=== PATIENT | female | born 1955 | race Caucasian/White ===

== ENCOUNTER 2021-09-28 16:54 | Observation (INO) | payer OTHER ==
[2021-09-28] MEDS ORDERED: Sodium Chloride 0.9% 10 ML Syringe FLUSH PRN (17:03)
[2021-09-28] MEDS ORDERED: Sodium Chloride 0.9% 1,000 ML IV ONE (17:30)
[2021-09-28] MEDS ORDERED: HYDROmorphone 0.5 MG/0.5 ML Syringe IVPUSH ONE (17:57)
[2021-09-28] MEDS ORDERED: Ondansetron 4 MG/2 ML SDV IVPUSH ONE (17:57)
[2021-09-28] MEDS ORDERED: Piperacillin/Tazobactam 4.5 GM in Sodium Chloride 0.9% 100 ML IV ONE (20:20)
[2021-09-28] MEDS: Lactated Ringers 1,000 ML IV SCH (22:37)
[2021-09-28] MEDS: HYDROmorphone 0.5 MG/0.5 ML Syringe IVPUSH PRN (22:38)
[2021-09-28] MEDS: Heparin Sodium 5,000 Units/ML Vial SUBCUT SCH (22:45)
[2021-09-29] MEDS: Piperacillin/Tazobactam 4.5 GM in Sodium Chloride 0.9% 100 ML IV SCH ×3 (04:36→20:51)
[2021-09-29] MEDS: Heparin Sodium 5,000 Units/ML Vial SUBCUT SCH ×3 (04:38→20:53)
[2021-09-29 07:04] LABS: ESTIMATED GFR > 60 mL/min (>60)
[2021-09-29] MEDS ORDERED: Sodium Chloride 0.9% 1,000 ML IV ONE ×2 (08:40→17:03)
[2021-09-29] MEDS: Metoprolol Succinate 50 MG Tab.ER PO SCH (09:55)
[2021-09-29] MEDS ORDERED: Albuterol/Ipratropium 3.0-0.5 MG/3 ML Neb Soln NEB SCH (10:20)
[2021-09-29] MEDS ORDERED: Bupivacaine 0.5%/EPINEPHrine 1:200,000 50 ML MDV ONE (11:19)
[2021-09-29] MEDS ORDERED: Sodium Chloride 0.9% 50 ML SDV ONE (11:20)
[2021-09-29] MEDS ORDERED: Iopamidol 612 MG/ML 50 ML SDV ONE (11:20)
[2021-09-29] MEDS ORDERED: Etomidate 2 MG/ML 20 ML SDV IVPUSH ONE (11:56)
[2021-09-29] MEDS ORDERED: Succinylcholine 200 MG/10 ML MDV ONE (11:56)
[2021-09-29] MEDS ORDERED: fentaNYL 100 MCG/2 ML SDV ONE (11:56)
[2021-09-29] MEDS ORDERED: Lidocaine 1% 5 ML VIAL ONE (11:56)
[2021-09-29] MEDS ORDERED: Rocuronium 50 MG/5 ML Vial ONE (11:56)
[2021-09-29] MEDS ORDERED: Midazolam 1 MG/ML 2 ML SDV ONE (11:57)
[2021-09-29] MEDS ORDERED: Phenylephrine 1% 10 MG/ML SDV ONE (11:57)
[2021-09-29] MEDS ORDERED: Ondansetron 4 MG/2 ML SDV ONE (12:33)
[2021-09-29] MEDS ORDERED: Sodium Chloride 0.9% 100 ML ONE (12:57)
[2021-09-29] MEDS ORDERED: Neostigmine Methylsulfate 10 MG/10 ML MDV ONE (13:05)
[2021-09-29] MEDS ORDERED: fentaNYL 100 MCG/2 ML SDV IVPUSH PRN (13:45)
[2021-09-29] MEDS ORDERED: HYDROmorphone 0.5 MG/0.5 ML Syringe IVPUSH PRN (13:45)
[2021-09-29] MEDS ORDERED: Ondansetron 4 MG/2 ML SDV IVPUSH PRN (13:45)
[2021-09-29] MEDS: Lactated Ringers 1,000 ML IV SCH (14:41)
[2021-09-29] MEDS ORDERED: diphenhydrAMINE 50 MG/ML SDV IVPUSH PRN (17:10)
[2021-09-29] MEDS ORDERED: Melatonin 3 MG Tab PO SCH (21:00)
[2021-09-30] MEDS: Piperacillin/Tazobactam 4.5 GM in Sodium Chloride 0.9% 100 ML IV SCH (04:35)
[2021-09-30] MEDS: Heparin Sodium 5,000 Units/ML Vial SUBCUT SCH ×2 (04:36→13:05)
[2021-09-30] MEDS: HYDROmorphone 0.5 MG/0.5 ML Syringe IVPUSH PRN (04:46)
[2021-09-30] MEDS: Lactated Ringers 1,000 ML IV SCH (07:34)
[2021-09-30] MEDS: Metoprolol Succinate 50 MG Tab.ER PO SCH (08:59)
[2021-09-30] MEDS ORDERED: oxyCODONE 5 MG Tab PO PRN (09:41)
[2021-09-30] MEDS ORDERED: Acetaminophen 325 MG Tab PO SCH (10:00)
[2021-09-30 14:32] VITALS: BP 90/47; PULSE 84
== END 2021-09-30 16:08 | disposition home or self-care (01) ==
LOC: JD.ED 16:54 → JD.MS 20:51
PROVIDERS: ADMIT Surgery; ATTEND Surgery
DX: C49.A9 Gastrointestinal stromal tumor of other sites (principal); H54.7 Unspecified visual loss; I10 Essential (primary) hypertension; K81.9 Cholecystitis, unspecified; F17.210 Nicotine dependence, cigarettes, uncomplicated; Z79.899 Other long term (current) drug therapy
CPT/HCPCS: 36415; 49321; 74177; 80053; 83605; 83690; 85025; 87040; 87086; 94640; 96361; 96365; 96366; 96372; 96375; 96376; 99285; A9270; G0378; J0330; J1170; J1644; J2250; J2370; J2405; J2543; J2710; J3010; J3490; J7030; J7120; 00840; 96374; 99283; J7620-GY; Q9967

== ENCOUNTER 2021-10-07 11:35 | Inpatient (IN) | payer OTHER ==
[2021-10-07] MEDS: D5 1/2 NS w/ 20 mEq/L KCl 1,000 ML IV SCH ×2 (13:03→22:29)
[2021-10-07] MEDS: Heparin Sodium 5,000 Units/ML Vial SUBCUT SCH ×2 (13:04→20:33)
[2021-10-07] MEDS: Acetaminophen 325 MG Tab PO SCH ×2 (13:04→20:33)
[2021-10-07 13:45] LABS: ESTIMATED GFR > 60 mL/min (>60)
[2021-10-07] MEDS: oxyCODONE 5 MG Tab PO PRN (14:44)
[2021-10-07] MEDS ORDERED: Sodium Chloride 0.9% 1,000 ML IV ONE (15:50)
[2021-10-07] MEDS: HYDROmorphone 0.5 MG/0.5 ML Syringe IVPUSH PRN ×2 (17:28→20:32)
[2021-10-08] MEDS: HYDROmorphone 0.5 MG/0.5 ML Syringe IVPUSH PRN ×3 (04:51→20:17)
[2021-10-08] MEDS: Acetaminophen 325 MG Tab PO SCH ×4 (04:51→20:17)
[2021-10-08] MEDS: Heparin Sodium 5,000 Units/ML Vial SUBCUT SCH ×3 (04:52→20:16)
[2021-10-08 06:47] LABS: ESTIMATED GFR > 60 mL/min (>60)
[2021-10-08] MEDS ORDERED: Ondansetron 4 MG in Sodium Chloride 0.9% 50 ML IV PRN (09:13)
[2021-10-08] MEDS ORDERED: Ondansetron 4 MG/2 ML SDV IV PRN (09:21)
[2021-10-08] MEDS: oxyCODONE 5 MG Tab PO PRN ×3 (12:43→18:42)
[2021-10-08] MEDS: D5 1/2 NS w/ 20 mEq/L KCl 1,000 ML IV SCH (16:48)
[2021-10-09] MEDS: Heparin Sodium 5,000 Units/ML Vial SUBCUT SCH ×2 (04:06→12:37)
[2021-10-09] MEDS: Acetaminophen 325 MG Tab PO SCH ×2 (04:06→12:37)
[2021-10-09] MEDS ORDERED: Sodium Chloride 0.9% 1,000 ML IV ONE (09:07)
[2021-10-09] MEDS: HYDROmorphone 0.5 MG/0.5 ML Syringe IVPUSH PRN (10:21)
[2021-10-09] MEDS ORDERED: Sodium Chloride 0.9% 500 ML IV ONE (12:19)
[2021-10-09] MEDS ORDERED: Midodrine 5 MG Tab PO SCH (12:45)
[2021-10-09] MEDS: oxyCODONE 5 MG Tab PO PRN (14:32)
[2021-10-09] MEDS ORDERED: LORazepam 2 MG/ML SDV IVPUSH ONE (14:44)
[2021-10-09] MEDS ORDERED: Furosemide 20 MG/2 ML VIAL IVPUSH ONE (14:47)
[2021-10-09] MEDS ORDERED: Iopamidol 755 Mg/ML 100 ML Bottle IVPUSH ONE (15:41)
[2021-10-09] MEDS ORDERED: Sodium Chloride 0.9% 10 ML Syringe FLUSH PRN (15:41)
[2021-10-09] MEDS ORDERED: Sodium Chloride 0.9% 100 ML IV SCH (15:45)
[2021-10-09] MEDS ORDERED: Amiodarone In Dextrose,Iso-Osm 200 ML IV SCH (16:15)
[2021-10-09] MEDS ORDERED: Amiodarone In Dextrose,Iso-Osm 150 MG in Premix Bag 1 BAG IV ONE ×2 (16:15)
[2021-10-09] MEDS ORDERED: Morphine 4 MG/ML Syringe IVPUSH PRN (16:16)
[2021-10-09] MEDS ORDERED: LORazepam 2 MG/ML SDV IVPUSH PRN (16:16)
[2021-10-09 16:33] VITALS: BP 127/100; PULSE 100
[2021-10-09 16:46] LABS: ESTIMATED GFR > 60 mL/min (>60)
== END 2021-10-09 16:42 | disposition expired | DRG 947 ==
LOC: JD.MS 11:43 → UNDOADMOB 11:43 → INTOOBSV 11:43 → JD.MS 12:41 → OBSVTOIN 10-09 15:29
PROVIDERS: ADMIT Surgery; ATTEND Surgery
DX: G89.3 Neoplasm related pain (acute) (chronic) (principal); I21.9 Acute myocardial infarction, unspecified; I63.9 Cerebral infarction, unspecified; C78.6 Secondary malignant neoplasm of retroperitoneum and peritoneum; Z68.1 Body mass index [BMI] 19.9 or less, adult; I47.2 Ventricular tachycardia; R64 Cachexia; C80.1 Malignant (primary) neoplasm, unspecified; Z66 Do not resuscitate; I46.9 Cardiac arrest, cause unspecified; E86.0 Dehydration; H54.7 Unspecified visual loss; F17.210 Nicotine dependence, cigarettes, uncomplicated; I44.7 Left bundle-branch block, unspecified; K80.20 Calculus of gallbladder without cholecystitis without obstruction; R53.1 Weakness; R62.7 Adult failure to thrive; I10 Essential (primary) hypertension; I69.992 Facial weakness following unspecified cerebrovascular disease; Z90.49 Acquired absence of other specified parts of digestive tract; Z90.710 Acquired absence of both cervix and uterus; Z98.82 Breast implant status; Z86.16 Personal history of COVID-19
CPT/HCPCS: 36415; 70450; 70450-26; 70496; 70496-26; 70498; 70498-26; 80048; 80053; 83605; 84484; 85025; 93005; 96372; 96374; 96375; 96376; 97110-GP; 97116-GP; 97162-GP; 97530-GP; A9270-GY; G0378; G0379; J1170; J1644; J2060; J2405; J3480; J3490; J7030; Q9967